=== PATIENT | female | born 1985 | race Two or more races ===

== ENCOUNTER 2018-10-27 02:26 | Inpatient (IN) | payer MEDICAID, OTHER ==
[~2018-10-27] VITALS: Ht 157.5 cm; Wt 81.6 kg
[2018-10-27 04:39] LABS: BASOPHILS % 0.8 % (0.0-2.0); EOSINOPHILS % 1.2 % (0.0-5.0); HEMATOCRIT. 32.4 % (36.0-48.0); HEMOGLOBIN. 10.1 g/dL (12.0-16.0); LYMPHOCYTES % 28.7 % (20.0-50.0); MEAN CORPUSCULAR HEMOGLOBIN 20.5 pg (28.0-32.0); MEAN CORPUSCULAR VOLUME 65.9 fL (81.0-99.0); MEAN PLATELET VOLUME 8.1 fl (7.4-10.4); MONOCYTES % 6.9 % (2.0-8.0); NEUTROPHILS % 62.4 % (40.0-76.0); PLATELET 312 x1000/uL (130-400); RED BLOOD CELL COUNT 4.91 mill/uL (4.2-5.4); RED CELL DISTRIBUTION WIDTH 18.9 % (11.6-14.6)
[2018-10-27 04:43] LABS: CHLORIDE 106 mEq/L (98-107)
[2018-10-27 04:48] LABS: ETHANOL BLOOD < 10 mg/dL
[2018-10-27] MEDS ORDERED: LORAZEPAM 1MG TABLET PO ONE (05:30)
[2018-10-27 05:49] LABS: PLATELET ESTIMATE NORMAL
[2018-10-27 06:50] LABS: *AMPHETAMINES SCREEN URINE NEGATIVE (NEGATIVE); *BARBITURATES SCREEN URINE NEGATIVE (NEGATIVE); *BENZODIAZEPINES SCREEN URINE NEGATIVE (NEGATIVE); *COCAINE SCREEN URINE NEGATIVE (NEGATIVE); METHADONE URINE SCREEN NEGATIVE (NEGATIVE); OPIATES URINE SCREEN NEGATIVE (NEGATIVE)
[2018-10-27 06:51] LABS: CANNABINOID URINE SCREEN NEGATIVE (NEGATIVE); PHENCYCLIDINE URINE SCREEN NEGATIVE (NEGATIVE)
[2018-10-27] MEDS ORDERED: ASPIRIN 81MG TABLET PO ONE (09:15)
[2018-10-27 11:20] VITALS: BP 135/67
[2018-10-27] MEDS: ASPIRIN 81MG EC TABLET PO SCH (14:31)
[2018-10-27 16:00] VITALS: BP 137/79
[2018-10-27 16:41] LABS: HCG SCREEN NEGATIVE
[2018-10-27 20:00] VITALS: BP 172/94
[2018-10-27 20:05] LABS: CLARITY URINE TURBID (CLEAR); COLOR URINE YELLOW (YELLOW); KETONES URINE NEGATIVE (NEGATIVE); LEUKOCYTE ESTERASE URINE TRACE (NEGATIVE); NITRITE URINE NEGATIVE (NEGATIVE); OCCULT BLOOD URINE NEGATIVE (NEGATIVE); PH URINE 7.5 (4.5-8.0); PROTEIN URINE NEGATIVE (NEGATIVE); SPECIFIC GRAVITY URINE 1.013 (1.005-1.030)
[2018-10-27] MEDS ORDERED: LORAZEPAM 0.5MG TABLET PO ONE (21:00)
[2018-10-27] MEDS ORDERED: LORAZEPAM 0.5MG TABLET PO PRN (21:00)
[2018-10-27] MEDS: METOPROLOL TARTRATE 25MG TABLET PO SCH (21:43)
[2018-10-28] VITALS: BP 151/92
[2018-10-28 04:00] VITALS: BP 131/83
[2018-10-28 06:51] LABS: CHLORIDE 104 mEq/L (98-107)
[2018-10-28 06:52] LABS: BASOPHILS % 0.3 % (0.0-2.0); EOSINOPHILS % 1.7 % (0.0-5.0); HEMATOCRIT. 33.4 % (36.0-48.0); HEMOGLOBIN. 10.5 g/dL (12.0-16.0); LYMPHOCYTES % 31.5 % (20.0-50.0); MEAN CORPUSCULAR HEMOGLOBIN 20.7 pg (28.0-32.0); MEAN PLATELET VOLUME 8.7 fl (7.4-10.4); MONOCYTES % 6.3 % (2.0-8.0); NEUTROPHILS % 60.2 % (40.0-76.0); PLATELET 333 x1000/uL (130-400); RED BLOOD CELL COUNT 5.06 mill/uL (4.2-5.4); RED CELL DISTRIBUTION WIDTH 18.6 % (11.6-14.6)
[2018-10-28 07:06] LABS: TOTAL IRON BINDING CAPACITY 387 ug/dL (250-450)
[2018-10-28 07:08] LABS: LDL CHOLESTEROL 109 mg/dL (5-100)
[2018-10-28 07:11] LABS: HDL CHOLESTEROL 34 mg/dL (40-59)
[2018-10-28 08:00] VITALS: BP 143/83
[2018-10-28] MEDS: ASPIRIN 81MG EC TABLET PO SCH (08:39)
[2018-10-28] MEDS: METOPROLOL TARTRATE 25MG TABLET PO SCH (08:39)
[2018-10-28] MEDS ORDERED: REGADENOSON 0.4 MG/5 ML IV ONE ×2 (10:00→11:56)
[2018-10-29 09:06] LABS: HIV SCREEN 4G Non Reactive (Non Reactive)
== END 2018-10-28 12:45 | disposition left against medical advice (07) | DRG 134 ==
LOC: ER 02:26 → 7WST 09:59 → ENRESERV 10:19
PROVIDERS: ADMIT Internal Medicine; ATTEND Internal Medicine
DX: I26.99 Other pulmonary embolism without acute cor pulmonale (principal); R65.10 Systemic inflammatory response syndrome (SIRS) of non-infectious origin without acute organ dysfunction; D50.9 Iron deficiency anemia, unspecified; E11.9 Type 2 diabetes mellitus without complications; E66.9 Obesity, unspecified; F31.9 Bipolar disorder, unspecified; I10 Essential (primary) hypertension; Z53.21 Procedure and treatment not carried out due to patient leaving prior to being seen by health care provider; Z91.19 Patient's noncompliance with other medical treatment and regimen; Z79.84 Long term (current) use of oral hypoglycemic drugs; Z68.32 Body mass index [BMI] 32.0-32.9, adult
CPT/HCPCS: 36415; 71045; 78452; 80048; 80061; 80305; 82728; 83036; 83540; 83550; 83880; 84484; 84703; 85379; 87389; 93005; 93306; 96365; 99285; A9500; G0482; J2785

== ENCOUNTER 2019-01-28 17:01 | Emergency (ER) | payer MEDICAID ==
[~2019-01-28] VITALS: Ht 170.2 cm; Wt 70.0 kg
[2019-01-28 17:04] VITALS: BP 141/93
== END 2019-01-28 17:12 | disposition left against medical advice (07) ==
LOC: ER 17:01
DX: R07.89 Other chest pain (principal)
CPT/HCPCS: 99283

== ENCOUNTER 2019-04-23 21:02 | Emergency (ER) | payer MEDICAID ==
[~2019-04-23] VITALS: Ht 167.6 cm; Wt 100.0 kg
[2019-04-23 23:14] LABS: BASOPHILS % 0.4 % (0.0-2.0); EOSINOPHILS % 0.9 % (0.0-5.0); HEMATOCRIT. 31.8 % (36.0-48.0); HEMOGLOBIN. 9.9 g/dL (12.0-16.0); LYMPHOCYTES % 25.5 % (20.0-50.0); MEAN CORPUSCULAR HEMOGLOBIN 21.2 pg (28.0-32.0); MEAN PLATELET VOLUME 7.3 fl (7.4-10.4); MONOCYTES % 8.3 % (2.0-8.0); NEUTROPHILS % 64.9 % (40.0-76.0); PLATELET 270 x1000/uL (130-400); RED BLOOD CELL COUNT 4.68 mill/uL (4.2-5.4); RED CELL DISTRIBUTION WIDTH 18.8 % (11.6-14.6)
[2019-04-23 23:22] LABS: CHLORIDE 111 mEq/L (98-107)
[2019-04-23 23:26] LABS: ETHANOL BLOOD < 10 mg/dL; HCG SCREEN NEGATIVE
[2019-04-23 23:41] LABS: CLARITY URINE CLOUDY (CLEAR); COLOR URINE YELLOW (YELLOW); KETONES URINE TRACE (NEGATIVE); LEUKOCYTE ESTERASE URINE NEGATIVE (NEGATIVE); NITRITE URINE NEGATIVE (NEGATIVE); OCCULT BLOOD URINE NEGATIVE (NEGATIVE); PROTEIN URINE NEGATIVE (NEGATIVE); SPECIFIC GRAVITY URINE 1.027 (1.005-1.030); UROBILINOGEN URINE 0.2 E.U./dL (0.2-1.0)
[2019-04-23 23:50] LABS: *AMPHETAMINES SCREEN URINE NEGATIVE (NEGATIVE); *BARBITURATES SCREEN URINE NEGATIVE (NEGATIVE); CANNABINOID URINE SCREEN NEGATIVE (NEGATIVE); OPIATES URINE SCREEN NEGATIVE (NEGATIVE); PHENCYCLIDINE URINE SCREEN NEGATIVE (NEGATIVE)
[2019-04-23 23:51] LABS: *BENZODIAZEPINES SCREEN URINE NEGATIVE (NEGATIVE); *COCAINE SCREEN URINE NEGATIVE (NEGATIVE); METHADONE URINE SCREEN NEGATIVE (NEGATIVE)
[2019-04-24 02:00] VITALS: BP 105/67
[2019-04-24 02:07] LABS: PLATELET ESTIMATE NORMAL
== END 2019-04-24 02:01 | disposition home or self-care (01) ==
LOC: ER 23:06
DX: R06.03 Acute respiratory distress (principal); Z59.0 Homelessness; J45.909 Unspecified asthma, uncomplicated; E11.9 Type 2 diabetes mellitus without complications
CPT/HCPCS: 36415; 71045; 80305; 80307; 80320; 80329; 84703; 93005; 99284; G0480